=== PATIENT | female | born 1995 | race Hispanic/Latino ===

== ENCOUNTER 2017-09-20 12:52 | Outpatient (CLI) | payer OTHER ==
[2017-09-20 13:18] VITALS: BP 128/78
== END 2017-09-20 13:54 | disposition home or self-care (01) ==
LOC: TRG 12:52
PROVIDERS: ATTEND Obstetrics & Gynecology
DX: O47.1 False labor at or after 37 completed weeks of gestation (principal); Z3A.37 37 weeks gestation of pregnancy
CPT/HCPCS: 59025

== ENCOUNTER 2017-10-07 20:24 | Inpatient (IN) | payer OTHER ==
[2017-10-07] MEDS ORDERED: MINERAL OIL PO PRN (20:45)
[2017-10-07] MEDS ORDERED: SUBLIMAZE IV PRN (20:45)
[2017-10-07] MEDS ORDERED: BRETHINE SUB-Q PRN (20:45)
[2017-10-07] MEDS ORDERED: CERVIDIL VG ONE (20:45)
[2017-10-07] MEDS ORDERED: ePHEDrine SULFATE IV PRN (20:45)
[2017-10-07] MEDS ORDERED: STADOL IV PRN (20:45)
[2017-10-07] MEDS ORDERED: XYLOCAINE 2% INFILTRATI ONE (20:45)
--- NOTE | 2017-10-07 20:45 | History and Physical Report ---
History of Present Illness Date of examination: 10/07/17 Date of admission: 10/07/17 20:24 Chief complaint: Induction of labor History of present illness: EDC Confirmation: 10/10/2017 Past History : 1 Term Births: 0 Premature Births: 0 Living Children: 0 Para: 0 Mult. Births: 0 Prev : 0 Prev. attempt? 0 Aborta: 0 Elect. Ab: 0 Spont. Ab: 0 Ectopics: 0 Past Medical History: Hypertension - dx [facility]. 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 of genital herpes: no Partner hx. of genital herpes: no Rash, Viral, or Febrile illness since last LMP? no Varicella/Chicken Pox Status: Immunized TB Risk: no Genetic History Congenital Heart Defect: Mom: no Dad: no John Disease: Mom: no Dad: no Thalassemia Mom: no Dad: no Neural Tube Defect Mom: no Dad: no Down's Syndrome Mom: no Dad: no Rafael-Sachs Mom: no Dad: no Sickle Cell Disease/Trait Mom: no Dad: no Hemophilia Mom: no Dad: no Muscular Dystrophy Mom: no Dad: no Cystic Fibrosis Mom: no Dad: no Sathya Chorea Mom: no Dad: no Mental Retardation Mom: no Dad: no Fragile X Mom: no Dad: no Other Genetic/Chromosomal Disorder Mom: no Dad: no Child w/other defect Mom: no Dad: no Enviromental Exposures Xray Exposure: no Medication, drug, or alcohol use since LMP: no Chemical/Other Exposure: no Exposure to Cat Liter: yes Hx of Parvovirus (Fifth Disease): no Occupational Exposure to Children: other Comments: medical front desk officer Has cats - does not change little box Current Allergies (reviewed today): No known allergies Past History Past Medical History: other (See HPI) Past Surgical History: other (see HPI) - Obstetrical History Expected Date of Delivery: 10/10/17 Actual Gestation: 39 Week(s) 4 Day(s) : 1 Para: 0 Hx # Term Pregnancies: 0 Number of Pregnancies: 0 Spontaneous Abortions: 0 Induced : 0 Number of Living Children: 0 Medications and Allergies Allergies Allergy/AdvReac Type Severity Reaction Status Date / Time No Known Allergies Allergy Unverified 09/20/17 13:27 Review of Systems All systems: negative - Vital Signs Vital signs: Temp Pulse Resp BP Pulse Ox 98 H 142/102 10/07/17 20:44 10/07/17 20:44 - Physical Exam Breasts: Positive: normal Cardiovascular: Regular rate Lungs: Positive: Clear to auscultation, Normal air movement Abdomen: Positive: normal appearance, soft Genitourinary (Female): Positive: normal external genitalia, normal perenium Vulva: both: normal Vagina: Positive: normal moisture Uterus: Positive: normal size, normal contour Anus/Rectum: Positive: normal perianal skin Extremities: Positive: normal Deep Tendon Reflex Grade: Normal +2 - Obstetrical FHR: category 1 Uterine Contraction Monitor Mode: External Cervical Dilatation: 1.5 (posterior) Cervical Effacement Percentage: 40 station: -3 Uterine Contraction Frequency (min): none Uterine Contraction Pattern: Absent Uterine Tone Measurement Phase: Resting Results All other labs normal. Blood Type: O+ 03/05/2017 D (Rh) Type: + 03/05/2017 Antibody screen: negative 03/05/2017 Hgb: 13.8 03/05/2017 Hct: 38.5 03/05/2017 Rubella: immune 03/05/2017 VDRL: negative 03/05/2017 Urine Culture: negative 03/05/2017 HBsAg: negative 03/05/2017 HIV: negative 03/05/2017 Patient: RAJESH FUNK ID: [id number] Note: All result statuses are Final unless otherwise noted. Patient Note: PATIENT WAS FASTING Tests: (1) Chlamydia/GC Amplification ([id number]) Order Note: Clinical Information: SRC:UR SRC:VR Chlamydia trachomatis, ILA Negative Negative *1 Neisseria gonorrhoeae, ILA Negative Negative *2 Tests: (2) RPR, Rfx Qn RPR/Confirm TP ([id number]) RPR Non Reactive Non Reactive *3 Tests: (3) Panel 463521 ([id number]) HIV Screen 4th Generation wRfx Non Reactive Non Reactive *4 Tests: (4) Strep Gp B ILA ([id number]) ! Strep Gp B ILA [A] Positive Negative Assessment and Plan 22y/o being induced @ 39+4 weeks for CHTN on labetalol. Admission orders in EMR. Plan for cervical ripening tonight. Will obtain set of pre-e labs. - Patient Problems (1) 39 weeks gestation of Current Visit: Yes Status: Acute (2) Essential (primary) hypertension Current Visit: Yes Status: Acute (3) GBS (group B Streptococcus carrier), +RV culture, currently Current Visit: Yes Status: Acute Plan to address problem: Start Ampicillin in AM with pitocin
[2017-10-07] MEDS ORDERED: AMBIEN PO PRN (20:48)
[2017-10-07] MEDS ORDERED: PITOCin/NS 20 UNIT/1000ML DRIP 20 UNITS/1,000 ML BAG IV SCH (21:00)
[2017-10-07 22:10] LABS: Red Blood Count 4.25 M/mm3 (3.65-5.03)
[2017-10-07 22:11] LABS: Hematocrit 41.7 % (30.3-42.9); Hemoglobin 11.7 gm/dl (10.1-14.3); Mean Corpuscular HGB Conc 28 % (30-34); Mean Corpuscular Hemoglobin 28 pg (28-32); Mean Corpuscular Volume 98 fl (79-97); Platelet Count 136 K/mm3 (140-440); Red Cell Distribution Width 14.7 % (13.2-15.2)
[2017-10-07 22:22] LABS: Alanine Aminotransferase 6 units/L (7-56); Uric Acid 4.4 mg/dL (3.5-7.6)
[2017-10-07] MEDS: NORMODYNE PO SCH (22:50)
[2017-10-08] MEDS ORDERED: MOTRIN PO ONE (02:00)
[2017-10-08] MEDS ORDERED: TYLENOL PO ONE (04:02)
[2017-10-08] MEDS ORDERED: POLYCILLIN/NS 2 GM/100 ML 2 GM/100 ML BAG IV ONE (06:30)
--- NOTE | 2017-10-08 06:34 | Progress Note ---
Assessment and Plan - Patient Problems (1) 39 weeks gestation of Onset Date: ~10/08/17 Current Visit: Yes Status: Acute Plan to address problem: Pt resting No c/o voiced Denies WANG, blurred vision, chest pain. BP wnl FHR Cat 1 Cervidil removed AM care and diet Plan to start pitocin per protocol @ 0900 Ampicillin 2gm for GBS+ started. All questions addressed. (2) GBS (group B Streptococcus carrier), +RV culture, currently Onset Date: ~10/08/17 Current Visit: Yes Status: Acute Plan to address problem: Ampicillin started Subjective - Subjective Date of service: 10/08/17 (Cervidil removed) Principal diagnosis: IUP @ 39w5d with elevated BP IOL Patient reports: movement normal Objective - Vital Signs Vital Signs: Vital Signs - 12hr 10/07/17 10/07/17 10/07/17 20:44 20:49 20:54 Temperature Pulse Rate 92 H 84 95 H Respiratory Rate Blood Pressure 142/102 Blood Pressure [Right] O2 Sat by Pulse 97 97 98 Oximetry 10/07/17 10/07/17 10/07/17 20:55 20:59 21:04 Temperature Pulse Rate 82 89 83 Respiratory Rate Blood Pressure Blood Pressure [Right] O2 Sat by Pulse 84 98 97 Oximetry 10/07/17 10/07/17 10/07/17 21:09 21:14 21:19 Temperature Pulse Rate 90 96 H 111 H Respiratory Rate Blood Pressure Blood Pressure [Right] O2 Sat by Pulse 98 98 97 Oximetry 10/07/17 10/07/17 10/07/17 21:58 22:20 22:50 Temperature 98.7 F Pulse Rate 80 80 84 Respiratory Rate Blood Pressure 133/86 133/90 Blood Pressure 133/90 [Right] O2 Sat by Pulse 97 Oximetry 10/07/17 10/07/17 10/08/17 22:58 23:59 00:58 Temperature Pulse Rate 84 92 H 106 H Respiratory Rate Blood Pressure 133/90 117/63 144/75 Blood Pressure [Right] O2 Sat by Pulse Oximetry 10/08/17 10/08/17 10/08/17 01:58 03:55 04:10 Temperature 98.5 F Pulse Rate 118 H 93 H 80 Respiratory 12 Rate Blood Pressure 121/83 112/63 Blood Pressure 112/63 [Right] O2 Sat by Pulse Oximetry 10/08/17 10/08/17 10/08/17 04:14 04:16 04:20 Temperature Pulse Rate 94 H 25 L 96 H Respiratory Rate Blood Pressure Blood Pressure [Right] O2 Sat by Pulse 97 87 98 Oximetry 10/08/17 10/08/17 10/08/17 04:24 04:25 04:30 Temperature Pulse Rate 96 H 88 79 Respiratory Rate Blood Pressure Blood Pressure [Right] O2 Sat by Pulse 94 96 95 Oximetry 10/08/17 10/08/17 10/08/17 04:32 04:35 04:38 Temperature Pulse Rate 81 81 76 Respiratory Rate Blood Pressure Blood Pressure [Right] O2 Sat by Pulse 94 94 94 Oximetry 10/08/17 10/08/17 10/08/17 04:40 04:43 04:45 Temperature Pulse Rate 77 73 74 Respiratory Rate Blood Pressure Blood Pressure [Right] O2 Sat by Pulse 95 94 94 Oximetry 10/08/17 10/08/17 10/08/17 04:49 04:50 04:55 Temperature Pulse Rate 78 83 78 Respiratory Rate Blood Pressure Blood Pressure [Right] O2 Sat by Pulse 94 94 94 Oximetry 10/08/17 10/08/17 10/08/17 04:56 05:00 05:05 Temperature Pulse Rate 71 76 74 Respiratory Rate Blood Pressure 103/60 Blood Pressure [Right] O2 Sat by Pulse 94 94 Oximetry 10/08/17 10/08/17 10/08/17 05:10 05:12 05:15 Temperature Pulse Rate 77 78 60 Respiratory Rate Blood Pressure Blood Pressure [Right] O2 Sat by Pulse 94 94 94 Oximetry 10/08/17 10/08/17 10/08/17 05:20 05:25 05:30 Temperature Pulse Rate 66 72 80 Respiratory Rate Blood Pressure Blood Pressure [Right] O2 Sat by Pulse 91 93 93 Oximetry 10/08/17 10/08/17 10/08/17 05:35 05:40 05:45 Temperature Pulse Rate 77 72 72 Respiratory Rate Blood Pressure Blood Pressure [Right] O2 Sat by Pulse 92 92 92 Oximetry 10/08/17 10/08/17 10/08/17 05:50 05:55 06:00 Temperature Pulse Rate 71 72 64 Respiratory Rate Blood Pressure 117/62 Blood Pressure [Right] O2 Sat by Pulse 92 92 93 Oximetry 10/08/17 10/08/1710/08/18 06:10 06:15 06:20 Temperature Pulse Rate 78 58 L 59 L Respiratory Rate Blood Pressure Blood Pressure [Right] O2 Sat by Pulse 98 96 95 Oximetry 10/08/17 10/08/17 10/08/17 06:25 06:30 06:35 Temperature Pulse Rate 55 L 77 69 Respiratory Rate Blood Pressure Blood Pressure [Right] O2 Sat by Pulse 95 95 97 Oximetry - Exam Breasts: deferred Cardiovascular: Regular rate Lungs: Normal air movement Abdomen: Present: normal appearance, soft. Absent: distention, tenderness Uterus: Present: normal FHR: auscultation normal, category 1 Uterine Contraction Monitor Mode: External Cervical Dilatation: 1.5 Cervical Effacement Percentage: 70 station: -3 Uterine Contraction Pattern: Irregular Uterine Tone Measurement Phase: Resting Uterine Contraction Intensity: Mild Extremities: normal Deep Tendon Reflex Grade: Normal +2 - Labs Labs: Abnormal Labs 10/07/17 10/07/17 21:40 21:50 MCV 98 H MCHC 28 L Plt Count 136 L Creatinine 0.4 L ALT 6 L Lactate Dehydrogenase 239 H Laboratory Results - last 24 hr 10/07/17 10/07/17 10/07/17 21:40 21:49 21:50 WBC 7.5 RBC 4.25 Hgb 11.7 Hct 41.7 MCV 98 H MCH 28 MCHC 28 L RDW 14.7 Plt Count 136 L Creatinine 0.4 L Estimated GFR > 60 Uric Acid 4.4 AST 16 ALT 6 L Lactate Dehydrogenase 239 H Blood Type O POSITIVE Antibody Screen Negative
[2017-10-08] MEDS: NORMOSOL-R PH 7.4 1,000 ML IV SCH ×3 (06:38→13:28)
[2017-10-08 08:49] LABS: Bacteria,Urine 1+ /HPF (Negative); Bilirubin,Urine NEG (Negative); Blood,Urine NEG (Negative); Color,Urine Straw (Yellow); Hyaline Casts,Urine 1 /LPF; Protein,Urine <15 mg/dL mg/dL (Negative); Urobilinogen,Urine < 2.0 mg/dL (<2.0)
[2017-10-08 08:51] LABS: RBC,Urine < 1.0 /HPF (0.0-6.0)
[2017-10-08] MEDS: PITOCin/NS 30 UNIT/500ML 30 UNITS/500 ML BAG IV SCH ×4 (09:42→12:40)
[2017-10-08] MEDS ORDERED: AMPICILLIN/NS 1 GM/50 ML 1 GM/50 ML BAG IV SCH (10:30)
[2017-10-08] MEDS: NORMODYNE PO SCH (10:36)
--- NOTE | 2017-10-08 11:45 | Event Note ---
Date: 10/08/17 Mod contractions on Pit, cx 3cm, 80%, -3, anterior, light meconium on AROM. tracing Cat 1.
[2017-10-08] MEDS ORDERED: fentaNYL-BUPIV 2 MCG/ML-0.125% 200 MCG/100 ML BAG EPIDURAL SCH (13:00)
[2017-10-08] MEDS ORDERED: ePHEDrine SULFATE IV PRN (13:00)
[2017-10-08] MEDS ORDERED: NARCAN 2 MG/2 ML IV PRN (13:00)
[2017-10-08] MEDS ORDERED: REGLAN IV ONE (13:52)
[2017-10-08] MEDS ORDERED: BICITRA PO ONE (13:52)
[2017-10-08] MEDS ORDERED: BICITRA PO SCH (13:57)
[2017-10-08] MEDS ORDERED: REGLAN IV SCH (13:57)
[2017-10-08] MEDS ORDERED: PEPCID IV SCH ×2 (13:57→14:00)
--- NOTE | 2017-10-08 13:57 | Progress Note ---
Assessment and Plan - Patient Problems (1) Breech presentation Onset Date: ~10/08/17 Current Visit: Yes Status: Acute Qualifiers: Fetus number: single or unspecified fetus Qualified Code(s): O32.1XX0 - Maternal care for breech presentation, not applicable or unspecified Plan to address problem: Arrived on unit to place internal monitors Pt had declined epidural SVE reveals breech presentation Confirmed with bedside US. All findings made aware to pt and family. called. C/S called. Pt prepped and consented. Subjective - Subjective Date of service: 10/08/17 (pt declines epidural; came over to place Internals) Principal diagnosis: IUP @ 39w5d with elevated BP IOL Patient reports: movement normal Objective - Vital Signs Vital Signs: Vital Signs - 12hr 10/08/17 10/08/17 10/08/17 01:58 03:55 04:10 Temperature 98.5 F Pulse Rate 118 H 93 H 80 Respiratory 12 Rate Blood Pressure 121/83 112/63 Blood Pressure 112/63 [Right] O2 Sat by Pulse Oximetry 10/08/17 10/08/17 10/08/17 04:14 04:16 04:20 Temperature Pulse Rate 94 H 25 L 96 H Respiratory Rate Blood Pressure Blood Pressure [Right] O2 Sat by Pulse 97 87 98 Oximetry 10/08/17 10/08/17 10/08/17 04:24 04:25 04:30 Temperature Pulse Rate 96 H 88 79 Respiratory Rate Blood Pressure Blood Pressure [Right] O2 Sat by Pulse 94 96 95 Oximetry 10/08/17 10/08/17 10/08/17 04:32 04:35 04:38 Temperature Pulse Rate 81 81 76 Respiratory Rate Blood Pressure Blood Pressure [Right] O2 Sat by Pulse 94 94 94 Oximetry 10/08/17 10/08/17 10/08/17 04:40 04:43 04:45 Temperature Pulse Rate 77 73 74 Respiratory Rate Blood Pressure Blood Pressure [Right] O2 Sat by Pulse 95 94 94 Oximetry 10/08/17 10/08/17 10/08/17 04:49 04:50 04:55 Temperature Pulse Rate 78 83 78 Respiratory Rate Blood Pressure Blood Pressure [Right] O2 Sat by Pulse 94 94 94 Oximetry 10/08/17 10/08/17 10/08/17 04:56 05:00 05:05 Temperature Pulse Rate 71 76 74 Respiratory Rate Blood Pressure 103/60 Blood Pressure [Right] O2 Sat by Pulse 94 94 Oximetry 10/08/17 10/08/17 10/08/17 05:10 05:12 05:15 Temperature Pulse Rate 77 78 60 Respiratory Rate Blood Pressure Blood Pressure [Right] O2 Sat by Pulse 94 94 94 Oximetry 10/08/17 10/08/17 10/08/17 05:20 05:25 05:30 Temperature Pulse Rate 66 72 80 Respiratory Rate Blood Pressure Blood Pressure [Right] O2 Sat by Pulse 91 93 93 Oximetry 10/08/17 10/08/17 10/08/17 05:35 05:40 05:45 Temperature Pulse Rate 77 72 72 Respiratory Rate Blood Pressure Blood Pressure [Right] O2 Sat by Pulse 92 92 92 Oximetry 10/08/17 10/08/17 10/08/17 05:50 05:55 06:00 Temperature Pulse Rate 71 72 64 Respiratory Rate Blood Pressure 117/62 Blood Pressure [Right] O2 Sat by Pulse 92 92 93 Oximetry 10/08/17 10/08/17 10/08/17 06:10 06:15 06:20 Temperature Pulse Rate 78 58 L 59 L Respiratory Rate Blood Pressure Blood Pressure [Right] O2 Sat by Pulse 98 96 95 Oximetry 10/08/17 10/08/17 10/08/17 06:25 06:30 06:35 Temperature Pulse Rate 55 L 77 69 Respiratory Rate Blood Pressure Blood Pressure [Right] O2 Sat by Pulse 95 95 97 Oximetry 10/08/17 10/08/17 10/08/17 06:40 06:56 07:25 Temperature 97.9 F Pulse Rate 61 56 L 61 Respiratory 18 Rate Blood Pressure 113/66 Blood Pressure 125/73 [Right] O2 Sat by Pulse 97 99 Oximetry 10/08/17 10/08/17 10/08/17 07:27 07:32 09:09 Temperature Pulse Rate 66 58 L 107 H Respiratory 18 Rate Blood Pressure 125/73 Blood Pressure 139/102 [Right] O2 Sat by Pulse 98 98 98 Oximetry 10/08/17 10/08/17 10/08/17 09:12 09:17 09:22 Temperature Pulse Rate 81 97 H 83 Respiratory Rate Blood Pressure 139/102 Blood Pressure [Right] O2 Sat by Pulse 98 97 97 Oximetry 10/08/17 10/08/17 10/08/17 09:27 09:29 09:32 Temperature Pulse Rate 101 H 99 H 104 H Respiratory Rate Blood Pressure Blood Pressure [Right] O2 Sat by Pulse 97 93 95 Oximetry 10/08/17 10/08/17 10/08/17 09:37 09:42 09:45 Temperature Pulse Rate 104 H 82 90 Respiratory Rate Blood Pressure 142/94 Blood Pressure [Right] O2 Sat by Pulse 97 97 Oximetry 10/08/17 10/08/17 10/08/17 09:47 09:52 09:55 Temperature Pulse Rate 82 91 H 82 Respiratory Rate Blood Pressure 128/69 Blood Pressure 128/69 [Right] O2 Sat by Pulse 98 98 Oximetry 10/08/17 10/08/17 10/08/17 09:57 10:02 10:07 Temperature Pulse Rate 85 95 H 82 Respiratory Rate Blood Pressure Blood Pressure [Right] O2 Sat by Pulse 97 98 97 Oximetry 10/08/17 10/08/17 10/08/17 10:12 10:17 10:22 Temperature Pulse Rate 91 H 83 84 Respiratory Rate Blood Pressure Blood Pressure [Right] O2 Sat by Pulse 97 98 98 Oximetry 10/08/17 10/08/17 10/08/17 10:27 10:32 10:36 Temperature Pulse Rate 83 85 88 Respiratory Rate Blood Pressure 140/86 Blood Pressure [Right] O2 Sat by Pulse 97 97 Oximetry 10/08/17 10/08/17 10/08/17 10:40 10:45 10:50 Temperature Pulse Rate 75 97 H 88 Respiratory Rate Blood Pressure 140/86 Blood Pressure [Right] O2 Sat by Pulse 98 98 98 Oximetry 10/08/17 10/08/17 10/08/17 10:55 11:00 11:05 Temperature Pulse Rate 85 103 H 84 Respiratory Rate Blood Pressure 127/72 Blood Pressure [Right] O2 Sat by Pulse 98 98 96 Oximetry 10/08/17 10/08/17 10/08/17 11:08 11:10 11:15 Temperature Pulse Rate 84 88 84 Respiratory Rate Blood Pressure 133/92 Blood Pressure [Right] O2 Sat by Pulse 97 96 Oximetry 10/08/17 10/08/17 10/08/17 11:20 11:25 11:42 Temperature Pulse Rate 84 95 H 75 Respiratory Rate Blood Pressure Blood Pressure [Right] O2 Sat by Pulse 97 96 97 Oximetry 10/08/17 10/08/1710/08/18 11:47 11:52 11:56 Temperature Pulse Rate 91 H 79 73 Respiratory Rate Blood Pressure 142/90 Blood Pressure [Right] O2 Sat by Pulse 97 98 Oximetry 10/08/17 10/08/17 10/08/17 11:57 12:02 12:06 Temperature 97.7 F Pulse Rate 86 89 91 H Respiratory 18 Rate Blood Pressure Blood Pressure 153/96 [Right] O2 Sat by Pulse 98 98 98 Oximetry 10/08/17 10/08/17 10/08/17 12:07 12:08 12:12 Temperature Pulse Rate 89 90 72 Respiratory Rate Blood Pressure 153/96 Blood Pressure [Right] O2 Sat by Pulse 98 97 Oximetry 10/08/17 10/08/17 10/08/17 12:17 12:22 12:55 Temperature Pulse Rate 76 78 86 Respiratory Rate Blood Pressure 145/92 Blood Pressure [Right] O2 Sat by Pulse 98 98 Oximetry - Exam Breasts: deferred Cardiovascular: Regular rate Lungs: Normal air movement Abdomen: Present: normal appearance, soft. Absent: distention, tenderness Uterus: Present: normal FHR: auscultation normal, category 1 Uterine Contraction Monitor Mode: External Cervical Dilatation: 6 (breech; EXAM FINGER IN RECTUM) Cervical Effacement Percentage: 100 (presentation confirmed with BS US) station: -1 Uterine Contraction Pattern: Regular Uterine Tone Measurement Phase: Resting Uterine Contraction Intensity: Moderate Extremities: normal Deep Tendon Reflex Grade: Normal +2 - Labs Labs: Abnormal Labs 10/07/17 10/07/17 10/08/17 21:40 21:50 08:00 MCV 98 H MCHC 28 L Plt Count 136 L Creatinine 0.4 L ALT 6 L Lactate Dehydrogenase 239 H Urine WBC (Auto) 34.0 H Laboratory Results - last 24 hr 10/07/17 10/07/17 10/07/17 21:40 21:49 21:49 WBC RBC Hgb Hct MCV MCH MCHC RDW Plt Count Creatinine 0.4 L Estimated GFR > 60 Uric Acid 4.4 AST 16 ALT 6 L Lactate Dehydrogenase 239 H Urine Color Urine Turbidity Urine pH Ur Specific [place] Urine Protein Urine Glucose (UA) Urine Ketones Urine Blood Urine Nitrite Urine Bilirubin Urine Urobilinogen Ur Leukocyte Esterase Urine WBC (Auto) Urine RBC (Auto) U Epithel Cells (Auto) Urine Bacteria (Auto) Hyaline Casts RPR Nonreactive Blood Type O POSITIVE Antibody Screen Negative 10/07/17 10/08/17 21:50 08:00 WBC 7.5 RBC 4.25 Hgb 11.7 Hct 41.7 MCV 98 H MCH 28 MCHC 28 L RDW 14.7 Plt Count 136 L Creatinine Estimated GFR Uric Acid AST ALT Lactate Dehydrogenase Urine Color Straw Urine Turbidity Clear Urine pH 6.0 Ur Specific [place] 1.008 Urine Protein <15 mg/dl Urine Glucose (UA) Neg Urine Ketones Neg Urine Blood Neg Urine Nitrite Neg Urine Bilirubin Neg Urine Urobilinogen < 2.0 Ur Leukocyte Esterase Mod Urine WBC (Auto) 34.0 H Urine RBC (Auto) < 1.0 U Epithel Cells (Auto) < 1.0 Urine Bacteria (Auto) 1+ Hyaline Casts 1 RPR Blood Type Antibody Screen
[2017-10-08] MEDS ORDERED: PITOCin/NS 20 UNIT/1000ML DRIP 20 UNITS/1,000 ML BAG IV SCH ×3 (14:00→17:00)
[2017-10-08] MEDS ORDERED: ANCEF/STERILE WATER 2 GM/20 ML 2 GM/20 ML SYRINGE IV NR (14:00)
[2017-10-08] MEDS ORDERED: NORMOSOL-R PH 7.4 1,000 ML IV SCH ×2 (14:00)
[2017-10-08] MEDS ORDERED: NEO SYNEPHRINE/NS Syringe(OR USE) IV ONE (14:59)
[2017-10-08] MEDS ORDERED: XYLOCAINE MPF 2% ONE ×3 (15:06→15:08)
[2017-10-08] MEDS ORDERED: NACL 0.9% IR ONE (15:24)
[2017-10-08] MEDS ORDERED: WATER FOR IRRIG STERILE IR ONE (15:25)
[2017-10-08] MEDS ORDERED: ZOFRAN ONE (15:25)
[2017-10-08] MEDS ORDERED: ASTRAMORPH PF 10MG/10ML ONE (15:26)
--- NOTE | 2017-10-08 16:02 | Operative Report ---
Operative Report Operative Report: Date of Procedure: 10/08/2017 Procedure name(s): Primary transverse low segment section for michele breech presentation Pre-operative diagnosis: Intrauterine at 39 weeks, induction of labor for chronic hypertension in good control found to be a breech presentation once she got to be 6 cm dilated which was not obvious prior to that time. Post-operative diagnosis: Same, michele breech presentation with loose nuchal cord Surgeon: Leonor Moon M.D. Rotary Drier Feeder: BELKIS Anesthesia: Combined Spinal Epidural EBL: 800 mL : 7 lbs. 7 oz. (3366 g) female with Apgars of 8 and 9 Time of : 1512 Findings Infant in michele breech presentation. Normal tubes, uterus and ovaries. Narrow lower abdominal wall and pelvis Procedure The patient was taken to the operating room and after adequate anesthesia was obtained she was placed in the supine position in left lateral tilt. Sequential compression devices were in place on both lower extremities and a Morgan catheter was placed in a sterile fashion. The abdomen was then prepped and draped in the usual fashion. Surgical time-out was done with the entire OR team attentive. A Pfannenstiel incision was made with a scalpel and sharp dissection was carried down through all layers of the abdomen in the usual fashion. The abdomen was entered bluntly and the lower uterine segment was identified. The presenting part was palpated and a bladder flap was created with the Metzenbaum scissors. The scalpel was used to incise the uterus in a transverse fashion and this incision was extended bluntly with finger traction and the membranes were ruptured. My hand was inserted into the uterus. The breech was grasped delivered with fundal pressure. Same sacrum was grasped atraumatically and delivered to the level of slightly above the umbilicus. Both legs were then delivered with a Pinard maneuver for each leg. Cycles traction was continued until the shoulders came to the incision and each arm was delivered atraumatically after being rotated to an anterior position. The infant was elevated and the head was delivered easily. There was a loose nuchal cord. The cord was clamped and cut and a viable was suctioned and handed off to the attending NICU staff and was a 7 lbs. 7 oz. (3366 g) female with Apgars of 8 and 9. The placenta was removed manually, the interior of the uterus was cleansed with moist lap packs and the uterus was exteriorized. The uterine incision was closed with a double imbricating layer of 0 Vicryl suture in a running fashion. Hemostasis was adequate and the uterus was returned to the abdomen. Uterus was well contracted. The abdomen was then closed in layers: the rectus muscles were closed with several [id number] sutures of 0 Vicryl, the fascia was closed with running sutures of 0 Vicryl starting at both side corners in turn and tied together in the midline. The subcutaneous tissue was irrigated and then closed with several interrupted sutures of 2-0 plain and the skin was closed with a running subcuticular suture of 4-0 Vicryl. Sponge and Lap count correct X 3, estimated blood loss was 800 mL and the Morgan was draining clear urine. The patient tolerated the procedure well and was discharged to PACU in good condition.
[2017-10-08] MEDS ORDERED: TUCKS PAD TP PRN (16:14)
[2017-10-08] MEDS ORDERED: MYLICON PO PRN (16:14)
[2017-10-08] MEDS ORDERED: PHENERGAN PR PRN (16:14)
[2017-10-08] MEDS ORDERED: SENOKOT PO PRN (16:14)
[2017-10-08] MEDS ORDERED: LANSINOH TP PRN (16:14)
[2017-10-08] MEDS ORDERED: MILK OF MAGNESIA PO PRN (16:14)
[2017-10-08] MEDS ORDERED: MORPHINE IV PRN (16:14)
[2017-10-08] MEDS ORDERED: ZOFRAN IV PRN (16:14)
[2017-10-08] MEDS ORDERED: NARCAN 0.4 MG/1 ML IV PRN (16:14)
[2017-10-08] MEDS ORDERED: DILAUDID IV PRN (16:34)
[2017-10-08] MEDS ORDERED: TORADOL IV PRN (16:34)
[2017-10-08] MEDS: MORPHINE IV PRN ×2 (16:55→22:20)
[2017-10-08] MEDS ORDERED: SODIUM CHLORIDE FLUSH SYRINGE 10 ML IV SCH (17:00)
[2017-10-08] MEDS ORDERED: ANCEF/NS 1 GM/50 ML 1 GM/50 ML BAG IV SCH (17:00)
[2017-10-08] MEDS ORDERED: D5LR 1,000 ML IV SCH (17:00)
[2017-10-08] MEDS: ceFAZolin 1 GM in NACL 0.9% 20 ML IV SCH (22:21)
[2017-10-09] MEDS: MORPHINE IV PRN (03:41)
[2017-10-09 05:15] LABS: Hematocrit 32.1 % (30.3-42.9)
[2017-10-09] MEDS ORDERED: BOOSTRIX IM ONE (06:00)
[2017-10-09] MEDS: MOTRIN PO PRN ×3 (06:20→22:46)
[2017-10-09] MEDS: ceFAZolin 1 GM in NACL 0.9% 20 ML IV SCH (06:23)
--- NOTE | 2017-10-09 07:01 | Progress Note ---
Assessment and Plan - Patient Problems (1) delivery delivered Onset Date: ~10/08/17 Current Visit: Yes Status: Acute Plan to address problem: Pt A&O X 3 No c/o voiced VSS FF below umb Lochia small Dressing D&I H&H1/ stable No s/sx of anemia Doing well s/p c/s P: continue pathway Adv diet and activity as tolerated Subjective - Subjective Date of service: 10/09/17 (no c/o voiced) Principal diagnosis: primary c/s BREECH Day # 1 Patient reports: appetite normal, voiding normally, pain well controlled, ambulating normally : doing well Objective - Vital Signs Latest vital signs: Vital Signs Temp Pulse Resp BP BP Pulse Ox 10/09/17 01:00 98.7 F 82 18 126/82 10/08/17 21:30 99.5 F 88 20 128/75 10/08/17 17:30 98.7 F 74 16 142/91 10/08/17 17:04 98.5 F 10/08/17 17:00 71 9 L 134/81 97 10/08/17 16:54 78 14 128/80 98 10/08/17 16:48 76 14 123/71 98 10/08/17 16:42 83 14 125/79 96 10/08/17 16:36 74 14 119/71 97 10/08/17 16:30 61 15 118/70 100 10/08/17 16:25 90 13 128/81 99 10/08/17 16:20 64 13 116/61 10/08/17 16:14 59 L 14 115/72 99 10/08/17 16:08 62 15 109/71 99 10/08/17 16:03 83 12 98 10/08/17 16:02 97.5 F L 81 16 109/71 100 10/08/17 12:55 86 145/92 10/08/17 12:22 78 98 10/08/17 12:17 76 98 10/08/17 12:12 72 97 10/08/17 12:08 90 153/96 10/08/17 12:07 89 98 10/08/17 12:06 97.7 F 91 H 18 153/96 98 10/08/17 12:02 89 98 10/08/17 11:57 86 98 03/14/18 11:56 73 142/90 03/14/18 11:52 79 98 03/14/18 11:47 91 H 97 03/14/18 11:42 75 97 03/14/18 11:25 95 H 96 /14/18 11:20 84 97 03/14/18 11:15 84 96 /14/18 11:10 88 97 03/14/18 11:08 84 133/92 /14/18 11:05 84 96 /14/18 11:00 103 H 98 /14/18 10:55 85 127/72 98 /14/18 10:50 88 98 /14/18 10:45 97 H 98 /14/18 10:40 75 140/86 98 /14/18 10:36 88 140/86 /14/18 10:32 85 97 /14/18 10:27 83 97 /14/18 10:22 84 98 /14/18 10:17 83 98 14/18 10:12 91 H 97 14/18 10:07 82 97 14/18 10:02 95 H 98 14/18 09:57 85 97 14/18 09:55 82 128/69 128/69 14/18 09:52 91 H 98 14/18 09:47 82 98 14/18 09:45 90 142/94 14/18 09:42 82 97 14/18 09:37 104 H 97 14/18 09:32 104 H 95 14/18 09:29 99 H 93 14/18 09:27 101 H 97 14/18 09:22 83 97 14/18 09:17 97 H 97 14/18 09:12 81 139/102 98 0314/18 09:09 107 H 18 139/102 98 14/18 07:32 58 L 98 14/18 07:27 66 125/73 98 /14/18 07:25 97.9 F 61 18 125/73 99 Intake and Output /14/18 /14/18 /15/18 14:59 22:59 06:59 Intake Total 416.906 4079 480 Output Total 1950 1600 Balance 880.699 390 1120 Intake: IV 768.827 3461 Normosol-R pH 7.4 1,000 854.166 ml @ 125 mls/hr IV DIRECT [facility] Rx#:[id number] PITOCin/NS 30 UNIT/500ML 26.533 30 units In 500 ml @ 4 MILLIUNITS/MIN 4 mls/hr IV Q30MIN [facility] Rx#: [id number] Intake, Free Water 360 480 Output: Urine 1950 1600 Indwelling Catheter 1600 1600 Other: Total, Output Amount 1600 1600 # Voids Void 1 Estimated Blood Loss 800 - Exam Breasts: Present: normal Cardiovascular: Present: Regular rate Lungs: Present: Normal air movement Abdomen: Present: normal appearance, soft, normal bowel sounds Uterus: Present: normal, firm, fundal height below umbilicus Extremities: Present: normal Deep Tendon Reflex Grade: Normal +2 Incision: Present: normal, dry, intact, dressed (to be removed this AM) - Labs Labs: Abnormal lab results 10/08/17 Range/Units 08:00 Urine WBC (Auto) 34.0 H (0.0-6.0) /HPF
[2017-10-09] MEDS ORDERED: PRENATAL VITAMIN PO SCH (10:00)
[2017-10-09] MEDS: PERCOCET 5/325 PO PRN ×2 (14:15→22:46)
--- NOTE | 2017-10-10 07:56 | Discharge Summary ---
Providers - Providers Date of Admission: 10/07/17 20:24 Date of discharge: 10/10/17 (desires d/c home) Attending physician: BABAR JOYCE 10/08/17 16:14 Consult to Supervisor [employer] [CONS] Routine Reason For Exam: Primary care physician: BABAR JOYCE Hospitalization Reason for admission: Induction of labor, htn Condition: Good Procedures: primary c/s for breech Hospital course: IOL for htn, primary c/s for breech presentation, uncomplicated course Disposition: DC- TO HOME OR SELFCARE - Discharge Diagnoses (1) Essential (primary) hypertension Status: Acute (2) delivery delivered Status: Acute Core Measure Documentation - Palliative Care Palliative Care/ Comfort Measures: Not Applicable - Core Measures Any of the following diagnoses?: none Exam - Constitutional Vitals: Temp Pulse Resp BP Pulse Ox 98.6 F 69 16 112/68 99 10/10/17 00:00 10/10/17 00:00 10/10/17 00:00 10/10/17 00:00 10/09/17 17:22 General appearance: Present: no acute distress, well-nourished - EENT Eyes: Present: PERRL ENT: hearing intact, clear oral mucosa - Neck Neck: Present: supple, normal ROM - Respiratory Respiratory effort: normal Respiratory: bilateral: CTA - Cardiovascular Heart Sounds: Present: S1 & S2. Absent: rub, click - Extremities Extremities: pulses symmetrical, No edema Peripheral Pulses: within normal limits - Abdominal General gastrointestinal: Present: soft, non-tender, non-distended, normal bowel sounds Female genitourinary: Present: normal - Integumentary Integumentary: Present: clear, warm, dry - Musculoskeletal Musculoskeletal: gait normal, strength equal bilaterally - Psychiatric Psychiatric: appropriate mood/affect, intact judgment & insight - Neurologic Neurologic: CNII-XII intact, moves all extremities - Additional findings Additional findings: incision dry and intact, fundus firm, lochia scant, well, VSSAF, H&H stable w/o s/s infection. Plan Activity: advance as tolerated Diet: regular Wound: open to air, keep clean and dry Follow up with: BBAAR JOYCE MD [Primary Care Provider] - 7 Days (Congratulations! Please call [phone] to schedule your incision check in 1 week. Call for any questions or concerns.) Prescriptions: Ibuprofen [Motrin 800 MG tab] 800 mg PO Q8HR PRN #30 tablet PRN Reason: Pain oxyCODONE /ACETAMINOPHEN [Percocet 5/325 mg] 1 - 2 tab PO Q4HR PRN #30 tab PRN Reason: Pain
[2017-10-10] MEDS: MOTRIN PO PRN (09:39)
[2017-10-10] MEDS: PERCOCET 5/325 PO PRN (13:39)
[2017-10-10 17:46] VITALS: BP 127/87
== END 2017-10-10 17:15 | disposition home or self-care (01) | DRG 765 ==
LOC: LD 20:24 → OB 10-08 17:18
PROVIDERS: ADMIT Obstetrics & Gynecology; ATTEND Obstetrics & Gynecology
PROC: 10D00Z1 Extraction of Products of Conception, Low, Open Approach (ICD-10-PCS; principal; 2017-10-08)
PROC: 3E0234Z Introduction of Serum, Toxoid and Vaccine into Muscle, Percutaneous Approach (ICD-10-PCS; 2017-10-09)
DX: O32.1XX0 Maternal care for breech presentation, not applicable or unspecified (principal); O10.92 Unspecified pre-existing hypertension complicating childbirth; O99.824 Streptococcus B carrier state complicating childbirth; O77.0 Labor and delivery complicated by meconium in amniotic fluid; Z3A.39 39 weeks gestation of pregnancy; Z37.0 Single live birth; Z23 Encounter for immunization; O69.81X0 Labor and delivery complicated by cord around neck, without compression, not applicable or unspecified
CPT/HCPCS: 36415; 81001; 82565; 83615; 84450; 84460; 84550; 85014; 85018; 85027; 86592; 86850; 86900; 86901; 90471; 90715; 99211; G0463; J0290; J0690; J2270; J2274; J2370; J2405; J2590; J2765; J7121